=== PATIENT | male | born 1985 | race Two or more races ===

== ENCOUNTER 2016-12-05 00:23 | Emergency (ER) | payer SELFPAY ==
[~2016-12-05] VITALS: Ht 172.7 cm; Wt 104.3 kg
[2016-12-05 00:45] VITALS: BP 173/101
[2016-12-05] MEDS ORDERED: METOCLOPRAMIDE HCL 10 MG/2 ML VIAL. IV ONE (01:45)
[2016-12-05] MEDS ORDERED: KETOROLAC TROMETHAMINE 30 MG/ML INJ. IV ONE (01:45)
[2016-12-05] MEDS ORDERED: IV NORMAL SALINE 1000ML BAG 1,000 ML IV ONE (01:45)
[2016-12-05] MEDS ORDERED: diphenhydrAMINE 50 MG/ML VIAL IVP ONE (01:45)
[2016-12-05] MEDS ORDERED: DEXAMETHASONE SOD PHOS 20 MG/5 ML VIAL. IV ONE (01:45)
--- NOTE | 2016-12-05 03:04 | PHYS DOC ---
Past Medical History Past Medical History: No Pertinent History Past Surgical History: No Surgical History Alcohol Use: Occasionally Drug Use: Cocaine Adult General Chief Complaint Chief Complaint: HEADACHE HPI HPI 89-year-old male with a past medical history of cocaine abuse now complaining of headache after using cocaine this afternoon. Patient describes gradual onset of mild headache. No stiff neck no visual changes or weakness. Patient is able to function normally. He states he gets headaches like this about once a month and this is typical for him. No fevers chills sweats or shaking chills. He states he has been previously diagnosed with migraines Review of Systems Review of Systems Constitutional: Denies fever or chills [] Eyes: Denies change in visual acuity, redness, or eye pain [] HENT: Denies nasal congestion or sore throat [] Respiratory: Denies cough or shortness of breath [] Cardiovascular: No additional information not addressed in HPI [] GI: Denies abdominal pain, nausea, vomiting, bloody stools or diarrhea [] : Denies dysuria or hematuria [] Musculoskeletal: Denies back pain or joint pain [] Integument: Denies rash or skin lesions [] Neurologic: Denies headache, focal weakness or sensory changes [] Endocrine: Denies polyuria or polydipsia [] Current Medications Current Medications Current Medications Medications (Trade) Dose Ordered Sig/Hadley Start Time Stop Time Status Last Admin Dose Admin Dexamethasone Sodium Phosphate (Decadron) 10 mg 1X ONCE 12/05/16 01:45 12/05/16 01:46 DC 12/05/16 01:49 10 MG Diphenhydramine HCl (Benadryl) 25 mg 1X ONCE 12/05/16 01:45 12/05/16 01:46 DC 12/05/16 01:50 25 MG Ketorolac Tromethamine (Toradol) 30 mg 1X ONCE 12/05/16 01:45 12/05/16 01:46 DC 12/05/16 01:50 30 MG Metoclopramide HCl (Reglan) 10 mg 1X ONCE 12/05/16 01:45 12/05/16 01:46 DC 12/05/16 01:49 10 MG Sodium Chloride 1,000 ml @ 125 mls/hr 1X ONCE 12/05/16 01:45 12/05/16 09:44 12/05/16 01:49 125 MLS/HR Allergies Allergies Allergies Coded Allergies Type Severity Reaction Last Updated Verified No Known Drug Allergies 12/05/16 No Physical Exam Physical Exam L appearing patient no acute distress alert communicative and appropriate supple neck nonfocal neuro normal and symmetrical pupils. Remainder of exam is benign Constitutional: Well developed, well nourished, no acute distress, non-toxic appearance. [] HENT: Normocephalic, atraumatic, bilateral external ears normal, oropharynx moist, no oral exudates, nose normal. [] Eyes: PERRLA, EOMI, conjunctiva normal, no discharge. [] Neck: Normal range of motion, no tenderness, supple, no stridor. [] Cardiovascular:Heart rate regular rhythm, no murmur [] Lungs & Thorax: Bilateral breath sounds clear to auscultation [] Abdomen: Bowel sounds normal, soft, no tenderness, no masses, no pulsatile masses. [] Skin: Warm, dry, no erythema, no rash. [] Back: No tenderness, no CVA tenderness. [] Extremities: No tenderness, no cyanosis, no clubbing, ROM intact, no edema. [] Neurologic: Alert and oriented X 3, normal motor function, normal sensory function, no focal deficits noted. [] Psychologic: Affect normal, judgement normal, mood normal. [] Current Patient Data Vital Signs Vital Signs Date Time Temp Pulse Resp B/P (MAP) Pulse Ox O2 Delivery O2 Flow Rate FiO2 12/05/16 00:45 98.4 95 16 97 Room Air 98.4 EKG EKG [] Radiology/Procedures Radiology/Procedures [] Course & Med Decision Making Course & Med Decision Making Pertinent Labs and Imaging studies reviewed. (See chart for details) Signs and symptoms consistent with gradual onset of migraine headache typical for patient. Likely precipitated by cocaine use however clinical scenario is not consistent with subarachnoid hemorrhage. Patient does use cocaine regularly. He did not intentionally overdose nor is he suicidal. Stable on reevaluation after treatment comfortable and well-appearing no further workup or treatment indicated. Patient agrees with outpatient follow-up and strict return precautions given. She is aware that even a single use of cocaine could be fatal or result in permanent disability. [] Dragon Disclaimer Dragon Disclaimer This electronic medical record was generated, in whole or in part, using a voice recognition dictation system. Departure Departure Impression: Primary Impression: Migraine headache Additional Impression: Cocaine abuse Disposition: HOME, SELF-CARE Condition: STABLE Referrals: NO PCP (PCP) Patient Instructions: Cocaine Abuse-Brief, Migraine Headache Additional Instructions: Clearly any medical professional would recommend he not abuse cocaine. Be aware that even a single use of cocaine could result in or permanent disability. Is quite clear that cocaine use this evening precipitated your headache. Rest and drink plenty of fluids. Take ibuprofen and Tylenol as needed for pain. Follow-up with your doctor in the morning and return immediately for new severe or worsening symptoms. Problem Qualifiers PREMA PECK MD Dec 05, 2016 03:04
== END 2016-12-05 03:10 | disposition home or self-care (01) ==
LOC: ER 00:23
DX: G43.909 Migraine, unspecified, not intractable, without status migrainosus (principal); F14.10 Cocaine abuse, uncomplicated
CPT/HCPCS: 96361; 96374; 96375; 99284; J1100; J1200; J1885; J2765; J7030

== ENCOUNTER 2018-01-10 14:22 | Emergency (ER) | payer SELFPAY ==
[~2018-01-10] VITALS: Ht 167.6 cm; Wt 104.3 kg
[2018-01-10 15:10] VITALS: BP 129/69
--- NOTE | 2018-01-10 15:14 | PHYS DOC ---
Past Medical History Past Medical History: No Pertinent History Past Surgical History: No Surgical History Alcohol Use: Occasionally Drug Use: Cocaine Adult General Chief Complaint Chief Complaint: LOWER BACK PAIN OR INJURY HPI HPI Patient is a 32 year old male who presents with 7/10 left lower back pain radiating to the left lower extremity that has been going on for 3 days. Patient denies any known injury. Patient states he works for [employer]. He states the pain is worse when he sits on his bilateral or he is moving or lifting heavy items. Patient denies any loss of bowel bladder function. Review of Systems Review of Systems Constitutional: Denies fever or chills [] GI: Denies abdominal pain, nausea, vomiting, bloody stools or diarrhea [] : Denies dysuria or hematuria [] Musculoskeletal: Reports left low back pain radiating to the left lower extremity, denies joint pain [] Integument: Denies rash or skin lesions [] Neurologic: Denies headache, focal weakness or sensory changes [] All other systems were reviewed and found to be within normal limits, except as documented in this note. Allergies Allergies Allergies Coded Allergies Type Severity Reaction Last Updated Verified No Known Drug Allergies 12/05/16 No Physical Exam Physical Exam Constitutional: Well developed, well nourished, no acute distress, non-toxic appearance. [] Abdomen: Bowel sounds normal, soft, no tenderness, no masses, no pulsatile masses. [] Skin: Warm, dry, no erythema, no rash. [] Back: Moderate tenderness on palpation of the left SI joint, no midline lumbar spine tenderness, no CVA tenderness. Positive straight leg raise to the left lower extremity Extremities: No tenderness, no cyanosis, no clubbing, ROM intact, no edema. [] Neurologic: Alert and oriented X 3, normal motor function, normal sensory function, no focal deficits noted. [] Psychologic: Affect normal, judgement normal, mood normal. [] Current Patient Data Vital Signs Vital Signs Date Time Temp Pulse Resp B/P (MAP) Pulse Ox O2 Delivery O2 Flow Rate FiO2 01/10/18 15:10 98.0 68 20 129/69 (89) 97 Room Air 98.0 EKG EKG [] Radiology/Procedures Radiology/Procedures [] Course & Med Decision Making Course & Med Decision Making Pertinent Labs and Imaging studies reviewed. (See chart for details) This is a 32-year-old male patient presenting to the ED today with pain consistent of sciatica. Will be discharged with pain medication including anti- inflammatories, muscle relaxer and a steroid. Follow-up with PCP in 1-2 weeks. Patient has no cauda equina syndrome symptoms. Staff Physician Addendum: I was working in the ER during the course of this patient's visit. I was available for consultation as needed, but I was not directly involved in the care of this patient. Dragon Disclaimer Dragon Disclaimer This electronic medical record was generated, in whole or in part, using a voice recognition dictation system. Departure Departure Impression: Primary Impression: Low back pain Additional Impression: Sciatic nerve palsy, left Disposition: HOME, SELF-CARE Condition: STABLE Referrals: NO PCP (PCP) follow up with one of the doctors from the list provided in 1-2 weeks Patient Instructions: Back Pain, Adult, Sciatica Additional Instructions: You were evaluated in the emergency room for sciatic nerve pain. Please follow up with your doctor in one week. Apply heat to your low back. Come back to the Ed if symptoms worsen. Scripts Cyclobenzaprine Hcl (CYCLOBENZAPRINE HCL) 10 Mg Tablet 1 TAB PO TID, #30 TAB Prov: TOMMY DAVIS APRN 01/10/18 Diclofenac Sodium (DICLOFENAC SODIUM) 50 Mg Tablet.dr 1 TAB PO BID, #20 TAB 0 Refills Prov: TOMMY DAVIS APRN 01/10/18 Methylprednisolone (MEDROL) 4 Mg Tab.ds.pk 1 PKG PO UD, #1 PKG Prov: TOMMY DAVIS APRN 01/10/18 Hydrocodone/Apap 5-325 (NORCO 5-325 TABLET) 1 Each Tablet 1 TAB PO Q6HRS, #14 TAB Prov: TOMMY DAVIS APRN 01/10/18 Problem Qualifiers Primary Impression: Low back pain Chronicity: acute Back pain laterality: left Sciatica presence: with sciatica Sciatica laterality: sciatica of left side Qualified Codes: M54.42 - Lumbago with sciatica, left side TOMMY DAVIS APRN Jan 10, 2018 15:14 MERA KENNY MD Jan 10, 2018 18:12
[2018-01-10] MEDS ORDERED: CYCL10TA2 PO (15:26)
[2018-01-10] MEDS ORDERED: DICL50TA4 PO (15:26)
[2018-01-10] MEDS ORDERED: METH4TAB2 PO (15:26)
[2018-01-10] MEDS ORDERED: HYDR-971 PO (15:26)
== END 2018-01-10 15:33 | disposition home or self-care (01) ==
LOC: ER 14:22
DX: M54.42 Lumbago with sciatica, left side (principal); G58.9 Mononeuropathy, unspecified
CPT/HCPCS: 99283

== ENCOUNTER 2018-05-29 18:41 | Emergency (ER) | payer SELFPAY ==
[~2018-05-29] VITALS: Ht 175.3 cm; Wt 81.6 kg
[~2018-05-29 18:41] MED LIST: CYCL10TA2 PO; DICL50TA4 PO; HYDR-3164 PO; METH4TAB2 PO
--- NOTE | 2018-05-29 19:17 | PHYS DOC ---
Past Medical History Past Medical History: No Pertinent History Past Surgical History: No Surgical History Smoking: Less than 1pk/day Alcohol Use: Occasionally Drug Use: Cocaine, Marijuana Adult General Chief Complaint Chief Complaint: CHEST WALL PAIN HPI HPI Patient is a 32 year old male who presents with lower right chest wall pain, productive cough, nausea, fevers, and chills that started last night. The chest wall pain is exacerbated with deep breaths. Non tender to palpation and does not radiate. He describes it as "sharp and stabbing." He is also complaining of some nausea but denies vomiting, abdominal pain, diarrhea. Patient denies being around sick contacts, recent travel, history of cardiac issues, or history of blood clot. He also denies recent strenuous activities. Review of Systems Review of Systems Constitutional: Reports fever and chills Eyes: Denies change in visual acuity, redness, or eye pain HENT: Denies nasal congestion or sore throat [] GI: Denies abdominal pain, vomiting, diarrhea, Reports nausea : Denies dysuria or hematuria [] Musculoskeletal: Denies back pain or joint pain [] Integument: Denies rash or skin lesions [] Neurologic: Denies headache, focal weakness or sensory changes [] Complete systems were reviewed and found to be within normal limits, except as documented in this note. Current Medications Current Medications Current Medications Medications (Trade) Dose Ordered Sig/Hadley Start Time Stop Time Status Last Admin Dose Admin Dexamethasone (Decadron) 10 mg 1X ONCE 05/29/18 19:30 05/29/18 19:31 DC 05/29/18 20:06 10 MG Sodium Chloride 1,000 ml @ 1,000 mls/hr 1X ONCE 05/29/18 19:45 05/29/18 20:44 DC 05/29/18 20:06 1,000 MLS/HR Allergies Allergies Allergies Coded Allergies Type Severity Reaction Last Updated Verified No Known Drug Allergies 12/05/16 No Physical Exam Physical Exam Constitutional: Well developed, well nourished, no acute distress, non-toxic appearance. [] HENT: Normocephalic, atraumatic, bilateral TMs normal, oropharynx moist, facial piercing. [] Eyes: PERRL, EOMI, conjunctiva normal, no discharge. [] Neck: Normal range of motion, no tenderness, no LAD [] Cardiovascular:Heart rate regular rhythm, no murmur [] Lungs & Thorax: Bilateral breath sounds clear to auscultation [] Abdomen: Soft, no distention, no tenderness [] Skin: Warm, dry, no erythema, no rash, extensive tattoos on upper body. [] Back: No tenderness, no CVA tenderness. [] Extremities: No tenderness, ROM intact, no edema. [] Neurologic: Alert and oriented X 3, normal motor function, normal sensory function, no focal deficits noted. [] Psychologic: Affect normal, judgement normal, mood normal. [] Current Patient Data Vital Signs Vital Signs Date Time Temp Pulse Resp B/P (MAP) Pulse Ox O2 Delivery O2 Flow Rate FiO2 05/29/18 19:15 99.2 109 20 139/70 (93) 98 Room Air 99.2 Lab Values Laboratory Tests Test 05/29/18 19:45 05/29/18 19:47 White Blood Count 14.9 x10^3/uL (4.0-11.0) H Red Blood Count 4.99 x10^6/uL (4.30-5.70) Hemoglobin 15.4 g/dL (13.0-17.5) Hematocrit 44.7 % (39.0-53.0) Mean Corpuscular Volume 90 fL (79-100) Mean Corpuscular Hemoglobin 31 pg (25-35) Mean Corpuscular Hemoglobin Concent 34 g/dL (31-37) Red Cell Distribution Width 13.1 % (11.5-14.5) Platelet Count 202 x10^3/uL (140-400) Neutrophils (%) (Auto) 84 % (31-73) H Lymphocytes (%) (Auto) 9 % (24-48) L Monocytes (%) (Auto) 6 % (0-9) Eosinophils (%) (Auto) 0 % (0-3) Basophils (%) (Auto) 1 % (0-3) Neutrophils # (Auto) 12.5 x10^3uL (1.8-7.7) H Lymphocytes # (Auto) 1.4 x10^3/uL (1.0-4.8) Monocytes # (Auto) 0.8 x10^3/uL (0.0-1.1) Eosinophils # (Auto) 0.0 x10^3/uL (0.0-0.7) Basophils # (Auto) 0.1 x10^3/uL (0.0-0.2) D-Dimer (Iris) < 0.27 ug/mlFEU Sodium Level 139 mmol/L (136-145) Potassium Level 3.5 mmol/L (3.5-5.1) Chloride Level 102 mmol/L (98-107) Carbon Dioxide Level 28 mmol/L (21-32) Anion Gap 9 (6-14) Blood Urea Nitrogen 12 mg/dL (8-26) Creatinine 0.9 mg/dL (0.7-1.3) Estimated GFR (Cockcroft-Gault) 99.1 BUN/Creatinine Ratio 13 (6-20) Glucose Level 94 mg/dL (70-99) Calcium Level 9.2 mg/dL (8.5-10.1) Magnesium Level 1.8 mg/dL (1.8-2.4) Total Bilirubin 0.6 mg/dL (0.2-1.0) Aspartate Amino Transferase (AST) 11 U/L (15-37) L Alanine Aminotransferase (ALT) 11 U/L (16-63) L Alkaline Phosphatase 104 U/L (46-116) Creatine Kinase 56 U/L (39-308) Creatine Kinase MB (Mass) < 0.5 ng/mL (0.0-3.6) Creatine Kinase MB Relative Index % (0-4) Troponin I Quantitative < 0.017 ng/mL (0.000-0.055) Total Protein 7.9 g/dL (6.4-8.2) Albumin 3.7 g/dL (3.4-5.0) Albumin/Globulin Ratio 0.9 (1.0-1.7) L Influenza Type A Antigen Negative (NEGATIVE) Influenza Type B Antigen Negative (NEGATIVE) Laboratory Tests 05/29/18 19:45 Laboratory Tests 05/29/18 19:45 EKG EKG @ 19:57 Sinus tachycardia with HR of 106 BPM QRS: 98 ms QT/QTc: 302/403 ms Radiology/Procedures Radiology/Procedures PROCEDURE: CHEST PA & LATERAL Chest radiograph 05/29/2018 7:23 PM INDICATION: Chest pain COMPARISON: None available TECHNIQUE: Frontal and lateral views of the chest are provided. FINDINGS: The cardiomediastinal silhouette is within normal limits. There are no pleural effusions. There is no pulmonary vascular congestion. There is no pneumothorax. The lungs are clear. No significant osseous abnormality is identified. IMPRESSION: No acute cardiopulmonary process. Electronically signed by: Katheryn Magallon MD (05/29/2018 7:45 PM) [facility] DICTATED and SIGNED BY: KATHERYN MAGALLON MD DATE: 05/29/181944 Course & Med Decision Making Course & Med Decision Making Pertinent Labs and Imaging studies reviewed. (See chart for details) Patient presents with pleuritic chest pain and upper respiratory infection symptoms including cough, fever and chills. His lab work revealed elevated WBC count but was otherwise normal. Influenza A and B were negative. Troponin and D- dimer were within normal limits. His chest Xray did not reveal any acute findings and EKG showed sinus tachycardia. Symptomatic treatment provided. Patient discharged with albuterol and steroid burst. We discussed this is likely viral but given smoking history prescription for antibiotics provided if there is no improvement in the next 72 hours. Patient stable for discharge with outpatient follow-up with PCP. Discussed findings and plan with patient, who acknowledges understanding and agreement. Dragon Disclaimer Dragon Disclaimer This electronic medical record was generated, in whole or in part, using a voice recognition dictation system. Departure Departure Impression: Primary Impression: Pleurisy Additional Impression: Bronchitis Disposition: 01 HOME, SELF-CARE Condition: STABLE Referrals: NO PCP (PCP) Patient Instructions: Acute Bronchitis, [id number], Pleurisy, [id number] Additional Instructions: Hold antibiotics for 48 hours. If symptoms worsen or for fever > 100.3 F after 48 hours then start antibiotics as prescribed. Scripts Azithromycin (ZITHROMAX) 250 Mg Tablet 1 PKG PO UD for bronchitis, #6 TAB Take 2 tablets on day 1 and then 1 tablet each day for the next 4 days as directed Prov: PREMA GRANDA DO 05/29/18 Prednisone (PREDNISONE) 20 Mg Tablet 2 TAB PO DAILY, #8 TAB Start tomorrow 05/30/18 Prov: PREMA GRANDA DO 05/29/18 Albuterol Sulfate (Proair Hfa) 8.5 Gm Hfa.aer.ad 1 PUFF INH PRN Q6HRS PRN for SHORTNESS OF BREATH, #1 INHALER Prov: PREMA GRANDA DO 05/29/18 Problem Qualifiers PREMA GRANDA DO May 29, 2018 19:17
[2018-05-29] MEDS ORDERED: DEXAMETHASONE 4 MG TABLET PO ONE (19:30)
[2018-05-29] MEDS ORDERED: IV NORMAL SALINE 1000ML BAG 1,000 ML IV ONE (19:45)
--- NOTE | 2018-05-29 19:48 | RAD ---
Chest radiograph 05/29/2018 7:23 PM INDICATION: Chest pain COMPARISON: None available TECHNIQUE: Frontal and lateral views of the chest are provided. FINDINGS: The cardiomediastinal silhouette is within normal limits. There are no pleural effusions. There is no pulmonary vascular congestion. There is no pneumothorax. The lungs are clear. No significant osseous abnormality is identified. IMPRESSION: No acute cardiopulmonary process. Electronically signed by: Yoselin Magallon MD (05/29/2018 7:45 PM) [facility]
[2018-05-29 19:55] LABS: BASO # 0.1 x10^3/uL (0.0-0.2); BASO % 1 % (0-3); EOS % 0 % (0-3); HEMATOCRIT 44.7 % (39.0-53.0); HEMOGLOBIN 15.4 g/dL (13.0-17.5); LYMPH # 1.4 x10^3/uL (1.0-4.8); LYMPH % 9 % (24-48); MEAN CORPUSCULAR HEMOGLOBIN 31 pg (25-35); MEAN CORPUSCULAR HGB CONC 34 g/dL (31-37); MEAN CORPUSCULAR VOLUME 90 fL (79-100); MONO # 0.8 x10^3/uL (0.0-1.1); MONO % 6 % (0-9); NEUT # 12.5 x10^3uL (1.8-7.7); NEUT % 84 % (31-73); PLATELET COUNT 202 x10^3/uL (140-400); RED BLOOD COUNT 4.99 x10^6/uL (4.30-5.70); RED CELL DISTRIBUTION WIDTH 13.1 % (11.5-14.5); WHITE BLOOD COUNT 14.9 x10^3/uL (4.0-11.0)
[2018-05-29 20:04] LABS: CALCIUM 9.2 mg/dL (8.5-10.1); CREATININE 0.9 mg/dL (0.7-1.3); GFR 99.1; POTASSIUM 3.5 mmol/L (3.5-5.1)
[2018-05-29 20:10] LABS: ALBUMIN 3.7 g/dL (3.4-5.0); ALBUMIN/GLOBULIN RATIO 0.9 (1.0-1.7); MAGNESIUM 1.8 mg/dL (1.8-2.4); TOTAL BILIRUBIN 0.6 mg/dL (0.2-1.0); TOTAL PROTEIN 7.9 g/dL (6.4-8.2)
[2018-05-29 20:13] LABS: INFLUENZA A PATIENT NEGATIVE (NEGATIVE); INFLUENZA B PATIENT NEGATIVE (NEGATIVE)
[2018-05-29 20:18] LABS: CREATINE KINASE 56 U/L (39-308)
[2018-05-29] MEDS ORDERED: ALBU2.5V8 INH (20:34)
[2018-05-29] MEDS ORDERED: PRED20TA PO (20:34)
[2018-05-29] MEDS ORDERED: AZIT250T PO (20:34)
[2018-05-29 20:39] VITALS: BP 140/68
--- NOTE | 2018-05-30 08:05 | EKG ---
[facility] [address] [place] [address] Test Date: 2018-05-29 Test Time: 19:57:48 Pat Name: YANNICK LY Department: Room: Gender: M [employer]: : [id number] Requested By: PREMA GRANDA Order Number: [id number] Reading MD: Eric Rosales MD Measurements Intervals [place] Rate: 106 P: 45 SD: 128 QRS: 66 QRSD: 98 T: 47 QT: 302 QTc: 403 Interpretive Statements SINUS TACHYCARDIA NON-SPECIFIC ST/T CHANGES Electronically Signed On 06-10-2018 12:03:01 [employer] by Eric Rosales MD
== END 2018-05-29 21:05 | disposition home or self-care (01) ==
LOC: ER 18:41
DX: J40 Bronchitis, not specified as acute or chronic (principal); R07.89 Other chest pain; R11.0 Nausea; R50.9 Fever, unspecified; F17.200 Nicotine dependence, unspecified, uncomplicated
CPT/HCPCS: 36415; 71046; 80053; 82553; 83735; 84484; 85025; 85379; 87804; 93005; 99284; J7030; J8540

== ENCOUNTER 2019-03-03 19:13 | Emergency (ER) | payer SELFPAY ==
[~2019-03-03 19:13] MED LIST changes: +ALBU2.5V8 INH; +AZIT250T PO; +PRED20TA PO
== END 2019-03-03 19:43 | disposition left against medical advice (07) ==
LOC: ER 19:13
DX: M79.604 Pain in right leg (principal); Z53.21 Procedure and treatment not carried out due to patient leaving prior to being seen by health care provider

== ENCOUNTER 2019-12-01 10:11 | Emergency (ER) | payer SELFPAY ==
[~2019-12-01] VITALS: Ht 172.7 cm; Wt 88.0 kg
[2019-12-01 10:23] VITALS: BP 109/59
[2019-12-01] MEDS ORDERED: IBUP-1007 PO (11:41)
[2019-12-01] MEDS ORDERED: CYCL10TA2 PO (11:41)
--- NOTE | 2019-12-01 11:42 | PHYS DOC ---
Past Medical History Past Medical History: No Pertinent History Past Surgical History: No Surgical History Smoking Status: Current Every Day Smoker Alcohol Use: Occasionally Drug Use: Cocaine, Marijuana General Adult EDM: Chief Complaint: BACK INJURY HPI: HPI: 34-year-old male who denies any significant past medical history presents the ED with complaints of left-sided low back pain that started approximately 1 week ago when he was lifting 80 to 90 pounds of paint. Patient states pain radiates down his left leg, no relief with ibuprofen and states it hurts to get out of bed. History of prior back injury where he was diagnosed with a pinched nerve. IV drug use, immunocompromised state, alcohol abuse, diabetes or incarceration. Review of systems: Denies associated fever, chills, cough, dyspnea, sore throat, nausea, vomiting, diarrhea, abdominal pain, dysuria, hematuria, flank pain, saddle anesthesia, urinary or bowel retention or incontinence, leg swelling, hemoptysis, neck stiffness, rash, headache or other concerning symptoms. Allergies: Allergies: Allergies Coded Allergies Type Severity Reaction Last Updated Verified No Known Drug Allergies 12/05/16 No Physical Exam: PE: Constitutional: Well developed, well nourished, no acute distress, non-toxic appearance. [] HENT: Normocephalic, atraumatic, nose normal. [] Eyes: EOMI, conjunctiva normal, no discharge. [] Neck: Normal range of motion, no tenderness, supple, no stridor. [] Cardiovascular:Heart rate regular rhythm, no murmur [] Lungs & Thorax: Bilateral breath sounds clear to auscultation [] Abdomen: Bowel sounds normal, soft, no tenderness, no masses, no pulsatile masses. [] Skin: Warm, dry, no erythema, no rash. [] Back: L4/5 pain that radiate down left leg-cannot make worse, no rash or step offs, No tenderness, no CVA tenderness. [] Extremities: No tenderness, no cyanosis, no clubbing, ROM intact, no edema. [] Neurologic: Alert and oriented X 3, normal motor function, normal sensory function, no focal deficits noted. steady gait Psychologic: Affect normal, judgement normal, mood normal. [] Current Patient Data: Vital Signs: Vital Signs Date Time Temp Pulse Resp B/P (MAP) Pulse Ox O2 Delivery O2 Flow Rate FiO2 12/01/19 10:23 97.7 74 18 109/59 (76) 97 Room Air 97.7 EKG: EKG: [] Radiology/Procedures: Radiology/Procedures: [] Course & Med Decision Making: Course & Med Decision Making Pertinent Labs and Imaging studies reviewed. (See chart for details) Concern for severe lumbar low back pain with radiculopathy versus disc herniation versus sciatica. Will treat conservatively. Strict ED return precautions given for neurologic deficits, saddle anesthesia, weakness or sensory deficits. Encouraged urgent outpatient follow-up with PMD and Ortho. Life-threatening processes were considered but are low suspicion at this time, given history and physical exam. Pt was educated on all prescription medications and adverse effects. All patient's questions were answered and pt was stable at time of discharge. Differential includes aortic dissection, cauda equina syndrome, transverse myelitis, spinal cord compression, epidural abscess or hematoma, osteomyelitis, disc herniation, surgical abdomen, stable or unstable fracture, renal colic/urosepsis, musculoskeletal injury, traumatic injury, intraabdominal or pelvic bleeding, I spoken with the patient and her caregivers. I explained the patient's condition, diagnoses and treatment plan based on the information available to me at this time. I have answered the patient and her caregiver's questions and addressed any concerns. The patient and her caregivers have a good underst anding of patient's diagnosis, condition and treatment plan as can be expected at this point. Vital signs have been stable. Patient's condition is stable and appropriate for discharge from the emergency department. Patient will pursue further outpatient evaluation with primary care physician or other designated or consulting physician as outlined in the discharge instructions. The patient and/or caregivers are agreeable to this plan of care and follow-up instructions have been explained in detail. The patient and/or caregivers have received these instructions in written form and have expressed an understanding of the discharge instructions. The patient and/or caregivers are aware that any significant change of condition or worsening of symptoms should prompt immediate return to this or the closest emergency department or call to 911. Jim Disclaimer: Jim Disclaimer: This electronic medical record was generated, in whole or in part, using a voice recognition dictation system. Departure Departure Impression: Primary Impression: Low back pain at multiple sites Additional Impression: Radiculopathy Disposition: HOME, SELF-CARE Condition: STABLE Referrals: NO PCP (PCP) Patient Instructions: Back Pain, Adult, Lumbosacral Radiculopathy Additional Instructions: Pop Morgan MD Primary Specialties Orthopaedic Sports Medicine Orthopaedic Surgery Address: [address] [place] [address] Scripts Ibuprofen (IBUPROFEN) 600 Mg Tablet 600 MG PO PRN Q6HRS PRN for PAIN, #20 TAB take with food or milk Prov: RUFUS SULTANA DO 12/01/19 Cyclobenzaprine Hcl (CYCLOBENZAPRINE HCL) 10 Mg Tablet 5 TAB PO TID, #21 TAB Prov: RUFUS SULTANA DO 12/01/19 Justicifation of Admission Dx: Justifications for Admission: Justification of Admission Dx: N/A RUFUS SULTANA DO Dec 01, 2019 11:41
== END 2019-12-01 11:44 | disposition home or self-care (01) ==
LOC: ER 10:11
DX: M54.17 Radiculopathy, lumbosacral region (principal); M54.5 Low back pain; F17.200 Nicotine dependence, unspecified, uncomplicated; F12.90 Cannabis use, unspecified, uncomplicated; F14.90 Cocaine use, unspecified, uncomplicated
CPT/HCPCS: 99283

== ENCOUNTER 2020-10-20 12:08 | Emergency (ER) | payer OTHER ==
[~2020-10-20] VITALS: Ht 175.3 cm; Wt 86.3 kg
[~2020-10-20 12:08] MED LIST changes: +IBUP-1007 PO
[2020-10-20] MEDS ORDERED: ONDANSETRON PF 4 MG/2 ML VIAL. IVP ONE (15:00)
[2020-10-20] MEDS ORDERED: KETOROLAC 30 MG/ML VIAL. IVP ONE (15:00)
[2020-10-20] MEDS ORDERED: fentaNYL PF VIAL 100 MCG/2 ML VIAL IVP ONE (15:00)
[2020-10-20] MEDS ORDERED: IV NORMAL SALINE 1000ML BAG 1,000 ML IV SCH (15:00)
--- NOTE | 2020-10-20 15:03 | PHYS DOC ---
Past Medical History Past Medical History: No Pertinent History Past Surgical History: No Surgical History Smoking Status: Current Every Day Smoker Alcohol Use: Occasionally Drug Use: Cocaine, Marijuana General Adult EDM: Chief Complaint: MULTIPLE COMPLAINTS HPI: HPI: Patient is a 34 year old male who presents with bilateral kidney pain that radiates around into the abdomen. He states that sharp and shooting. He rates his pain 8 out of 10. He states yesterday he was running a fever. He states he last took anything for pain yesterday and it was Tylenol. He states he had nausea and vomiting. He denies an injury to his back. His only history is a smoker. Review of Systems: Review of Systems: Constitutional: + fever or chills. [] Eyes: Denies change in visual acuity. [] HENT: Denies nasal congestion or sore throat. [] Respiratory: Denies cough or shortness of breath. [] Cardiovascular: Denies chest pain or edema. [] GI: + Bilateral lower abdominal pain, +nausea, +vomiting, denies bloody stools or diarrhea. [] : Denies dysuria. [] Musculoskeletal: +Bilateral flank back pain or denies joint pain. [] Integument: Denies rash. [] Neurologic: Denies headache, focal weakness or sensory changes. [] Endocrine: Denies polyuria or polydipsia. [] Lymphatic: Denies swollen glands. [] Psychiatric: Denies depression or anxiety. [] Heart Score: C/O Chest Pain: No Risk Factors: Risk Factors: DM, Current or recent (<one month) smoker, HTN, HLP, family history of CAD, obesity. Risk Scores: Score 0 - 3: 2.5% MACE over next 6 weeks - Discharge Home Score 4 - 6: 20.3% MACE over next 6 weeks - Admit for Clinical Observation Score 7 - 10: 72.7% MACE over next 6 weeks - Early Invasive Strategies Current Medications: Current Medications Medications (Trade) Dose Ordered Sig/[facility] Start Time Stop Time Status Last Admin Dose Admin Fentanyl Citrate (Fentanyl 2ml Vial) 50 mcg 1X ONCE 10/20/20 15:00 10/20/20 15:01 Ketorolac Tromethamine (Toradol 30mg Vial) 30 mg 1X ONCE 10/20/20 15:00 10/20/20 15:01 Ondansetron HCl (Zofran) 4 mg 1X ONCE 10/20/20 15:00 10/20/20 15:01 Sodium Chloride 1,000 ml @ 1,000 mls/hr Q1H 10/20/20 15:00 10/20/20 15:59 Allergies: Allergies: Allergies Coded Allergies Type Severity Reaction Last Updated Verified No Known Drug Allergies 12/05/16 No Physical Exam: PE: Constitutional: Well developed, well nourished, no acute distress, non-toxic appearance. [] HENT: Normocephalic, atraumatic, bilateral external ears normal, oropharynx moist, no oral exudates, nose normal. [] Eyes: PERRLA, EOMI, conjunctiva normal, no discharge. [] Neck: Normal range of motion, no tenderness, supple, no stridor. [] Cardiovascular:Heart rate regular rhythm, no murmur [] Lungs & Thorax: Bilateral breath sounds clear to auscultation [] Abdomen: Bowel sounds normal, soft, no tenderness, no masses, no pulsatile masses. [] Skin: Warm, dry, no erythema, no rash. [] Back: No tenderness, bilateral CVA tenderness. [] Extremities: No tenderness, no cyanosis, no clubbing, ROM intact, no edema. [] Neurologic: Alert and oriented X 3, normal motor function, normal sensory function, no focal deficits noted. [] Psychologic: Affect normal, judgement normal, mood normal. [] Current Patient Data: Vital Signs: Vital Signs Date Time Temp Pulse Resp B/P (MAP) Pulse Ox O2 Delivery O2 Flow Rate FiO2 10/20/20 14:22 99.1 90 18 140/73 (76) 98 99.1 EKG: EKG: [] Radiology/Procedures: Radiology/Procedures: [] Impression: [facility] [address] [place], [place] [id number] IMAGING REPORT Signed PATIENT: YANNICK LY EACCOUNT: [id number] : 1985 LOCATION: ER AGE: 34 SEX: M EXAM STATUS: REG ER ORD. PHYSICIAN: MÓNICA ORTIZ APRN REASON: BILATERAL KIDNEY PAIN PROCEDURE: CT ABDOMEN PELVIS WO CONTRAST EXAM: Abdomen and pelvis CT without intravenous contrast. HISTORY: Bilateral kidney pain. TECHNIQUE: Computed tomographic images of the abdomen and pelvis were obtained without contrast. Multiplanar reformatting was performed. *One or more of the following individualized dose reduction techniques were utilized for this examination: 1. Automated exposure control. 2. Adjustment of the mA and/or kV according to patient size. 3. Use of iterative reconstruction technique. COMPARISON: None. FINDINGS: Evaluation of the lower thorax demonstrates minimal basilar and post erior dependent atelectasis. There is no infiltrate or pleural effusion. There is hepatic steatosis. No focal hepatic lesion is seen. The gallbladder, pancreas, spleen, stomach and adrenal glands are unremarkable. There is no evidence of nephroureterolithiasis or hydronephrosis. No solid or cystic renal lesion is seen on this noncontrast exam. There is no appendicitis. There is no bowel obstruction. There is no abnormal bowel wall thickening. The bladder is unremarkable. The aorta is normal in caliber. There are prominent lymph nodes within the root of mesentery and retroperitoneum. These are nonspecific and likely physiologic or reactive in a patient of this age. There is no acute or suspicious osseous finding. There are degenerative changes involving the lower thoracic and lumbar spine. This results in bilateral foraminal and central canal stenosis primarily at L5-S1. IMPRESSION: 1. No acute abdominal or pelvic finding. Specifically, no evidence of nephroureterolithiasis or hydronephrosis. 2. Suspected hepatic steatosis. 3. Nonspecific prominent mesenteric and retroperitoneal lymph nodes, likely physiologic or reactive in a patient of this age. Electronically signed by: Thania Leigh MD (10/20/2020 3:49 PM) [id number] DICTATED and SIGNED BY: THANIA LEIGH MD DATE: 10/20/20 [id number] 0 Course & Med Decision Making: Course & Med Decision Making Pertinent Labs and Imaging studies reviewed. (See chart for details) See HPI. Alert and oriented x4. Ambulatory with steady gait. Speaks in full clear sentences. Bilateral slight CVA tenderness. Abdomen soft and nontender. Vital signs within normal limits. Skin pink warm and dry. Temperature is slightly elevated at 99.1. CT abdomen pelvis shows no acute findings. Blood work is unremarkable. Urinalysis shows no bacteria. [] Dragon Disclaimer: Dragon Disclaimer: This electronic medical record was generated, in whole or in part, using a voice recognition dictation system. Departure Departure Impression: Primary Impression: Flank pain Disposition: HOME / SELF CARE / HOMELESS Condition: STABLE Referrals: NO PCP (PCP) Patient Instructions: Flank Pain Additional Instructions: Drink plenty of fluids. Take medication as prescribed and with food. Follow-up with your primary care provider. Scripts Ondansetron (ONDANSETRON ODT) 4 Mg Tab.rapdis 1 TAB PO PRN Q6-8HRS, #16 TAB Prov: MÓNICA ORTIZ ACCOUNT DIRECTOR 10/20/20 Orphenadrine Citrate (ORPHENADRINE CITRATE) 100 Mg Tablet.er 1 TAB PO BID, #10 TAB Prov: MÓNICA ORTIZ ACCOUNT DIRECTOR 10/20/20 Ibuprofen (IBUPROFEN) 600 Mg Tablet 600 MG PO PRN Q6HRS PRN for INFLAMMATION, #25 TAB Prov: MÓNICA ORTIZ ACCOUNT DIRECTOR 10/20/20 MÓNICA ORTIZ ACCOUNT DIRECTOR Oct 20, 2020 15:03
--- NOTE | 2020-10-20 15:51 | RAD ---
EXAM: Abdomen and pelvis CT without intravenous contrast. HISTORY: Bilateral kidney pain. TECHNIQUE: Computed tomographic images of the abdomen and pelvis were obtained without contrast. Mult iplanar reformatting was performed. *One or more of the following individualized dose reduction techniques were utilized for this examina tion: 1. Automated exposure control. 2. Adjustment of the mA and/or kV according to patient size. 3. Use of iterative reconstruction technique. COMPARISON: None. FINDINGS: Evaluation of the lower thorax demonstrates minimal basilar and posterior dependent atelect asis. There is no infiltrate or pleural effusion. There is hepatic steatosis. No focal hepatic lesion is seen. The gallbladder, pancreas, spleen, stomach and adrenal glands are unremarkable. There is no evidence of nephroureterolithiasis or hydronephrosis. No solid or cystic renal lesion is seen on thi s noncontrast exam. There is no appendicitis. There is no bowel obstruction. There is no abnormal bowel wall thickening. The bladder is unremarkable. The aorta is normal in caliber. There are prominent lymph nodes within t he root of mesentery and retroperitoneum. These are nonspecific and likely physiologic or reactive in a patient of this age. There is no acute or suspicious osseous finding. There are degenerative skinner es involving the lower thoracic and lumbar spine. This results in bilateral foraminal and central can al stenosis primarily at L5-S1. IMPRESSION: 1. No acute abdominal or pelvic finding. Specifically, no evidence of nephroureterolithiasis or hydro nephrosis. 2. Suspected hepatic steatosis. 3. Nonspecific prominent mesenteric and retroperitoneal lymph nodes, likely physiologic or reactive i n a patient of this age. Electronically signed by: Thania Leigh MD (10/20/2020 3:49 PM) [id number]
[2020-10-20 16:45] LABS: BASO % 1 % (0-3); EOS % 0 % (0-3); HEMATOCRIT 43.5 % (39.0-53.0); HEMOGLOBIN 14.9 g/dL (13.0-17.5); LYMPH # 1.3 x10^3/uL (1.0-4.8); LYMPH % 21 % (24-48); MEAN CORPUSCULAR HEMOGLOBIN 31 pg (25-35); MEAN CORPUSCULAR HGB CONC 34 g/dL (31-37); MEAN CORPUSCULAR VOLUME 91 fL (79-100); MONO % 17 % (0-9); NEUT # 3.7 x10^3/uL (1.8-7.7); NEUT % 62 % (31-73); PLATELET COUNT 186 x10^3/uL (140-400); RED BLOOD COUNT 4.75 x10^6/uL (4.30-5.70); RED CELL DISTRIBUTION WIDTH 12.8 % (11.5-14.5)
[2020-10-20 17:18] LABS: ALBUMIN 3.6 g/dL (3.4-5.0); ALBUMIN/GLOBULIN RATIO 0.9 (1.0-1.7); CALCIUM 8.6 mg/dL (8.5-10.1); GFR 86.6; POTASSIUM 3.8 mmol/L (3.5-5.1); TOTAL BILIRUBIN 0.7 mg/dL (0.2-1.0); TOTAL PROTEIN 7.4 g/dL (6.4-8.2)
[2020-10-20 17:47] LABS: BILIRUBIN,URINE SMALL (NEG); CLARITY,URINE CLEAR; COLOR,URINE YELLOW; NITRITE,URINE NEGATIVE (NEG); PROTEIN,URINE NEGATIVE (NEG-TRACE)
[2020-10-20 17:55] LABS: BACTERIA,URINE 0 /HPF (0-FEW); RBC,URINE 0 /HPF (0-2); WBC,URINE 0 /HPF (0-4)
[2020-10-20] MEDS ORDERED: ONDA4TAB12 PO (18:03)
[2020-10-20] MEDS ORDERED: IBUP-1007 PO (18:03)
[2020-10-20] MEDS ORDERED: ORPH100T PO (18:03)
[2020-10-20 18:27] VITALS: BP 140/73
== END 2020-10-20 18:19 | disposition home or self-care (01) ==
LOC: ER 12:08
DX: R10.31 Right lower quadrant pain (principal); R10.32 Left lower quadrant pain; R11.2 Nausea with vomiting, unspecified; R50.9 Fever, unspecified; F17.200 Nicotine dependence, unspecified, uncomplicated
CPT/HCPCS: 36415; 74176; 80053; 81001; 85025; 96361; 96374; 96375; 99285; J1885; J2405; J3010; J7030